=== PATIENT | female | born 1945 | race Caucasian/White ===

== ENCOUNTER → 2018-05-25 | Outpatient (REF) | payer MEDICARE, OTHER | LOC: M LAB REF 09:22 | PROVIDERS: ATTEND Specialist | DX: C09.9 Malignant neoplasm of tonsil, unspecified (principal); R22.1 Localized swelling, mass and lump, neck ==

== ENCOUNTER → 2018-05-30 | Outpatient (CLI) | payer MEDICARE, OTHER, BC ==
[2018-05-30 17:17] LABS: CREATININE FOR GFR 1.08 MG/DL (0.55-1.30); GLOMERULAR FILTRATION RATE 52.8 (>39)
--- NOTE | 2018-05-31 08:25 | REP ---
CT NECK WITH CONTRAST: HISTORY: Tonsil neoplasm. CONTRAST: Isovue 370, 75 mL. There is enlargement of the right tonsil. There is medial extension into the soft palate. There is inferior extension into the right lateral wall of the oropharynx and tongue base. There is mild mass effect on the oropharynx. The naso- and hypopharynx, larynx, and subglottic trachea are normal in appearance. The salivary and thyroid glands are normal in size and density. An enlarged lymph node mass 2.4 cm in width is present in the right internal jugular chain at the level of the alaina- and hypopharynx. Enlarged lymph nodes 1.1 - 1.5 cm in width are present in the right posterior triangle at the level of the alaina- and hypopharynx. An enlarged lymph node 1.5 cm in width is present in the left internal jugular chain at the level of the alaina- and hypopharynx. Enlarged lymph nodes 1.1 and 1.4 cm in width are present in the right internal jugular chain at the level of the larynx. Small lymph nodes less than 1 cm in size are present in the left posterior triangle and submandibular areas. Atherosclerotic calcification is present at the left carotid bifurcation. Degenerative change is present in the cervical spine. Lung apices are clear. The visualized sinuses are clear. 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 There is extension into the soft palate and right lateral wall of the oropharynx and tongue base with mild mass effect on the oropharynx. Electronically Signed by Britton Cates MD 05/31/2018 08:29 A
== END ==
LOC: M RAD 15:17
PROVIDERS: ATTEND Specialist
DX: C09.9 Malignant neoplasm of tonsil, unspecified (principal); R59.0 Localized enlarged lymph nodes
CPT/HCPCS: 70491; 82565; 84520; Q9967